=== PATIENT | female | born 1975 | race Caucasian/White ===

== ENCOUNTER 2017-07-19 06:57 | Inpatient (IN) | payer OTHER ==
--- NOTE | 2017-07-16 10:49 | HP ---
Admitting History and Physical - Primary Care Physician PCP: Alex Ceballos - Admission Chief Complaint: high risk for breast cancer History of Present Illness: 42 yo female presents as a high risk for breast cancer patient secondary to personal history of bilateral atypia, family h/o of breast and ovarian cancer as well as CHEK 2 positive status. Patient is now presenting for bilateral prophylactic mastectomy with CAMPOS reconstruction. History Source: Patient Limitations to Obtaining History: No Limitations - Past Surgical History Past Surgical History: Yes: ( and ) Additional Past Surgical History: right breast core bx (04/2016) fibroadenoma left arm exc of benign lesion (2002) left elbow surgery () Home Medications - Allergies Allergies/Adverse Reactions: Allergies Allergy/AdvReac Type Severity Reaction Status Date / Time No Known Allergies Allergy Verified 07/16/17 11:09 - Home Medications Home Medications: Ambulatory Orders NK [No Known Home Medication] 07/16/17 Family Disease History - Family Disease History Family Disease History: CA: Grandparent (mat GM (breast at 65)), Mother (breast cancer at 68 ;CHEK 2 positive) Other Family History: maternal great GM (ovarian at 42) Review of Systems - Review of Systems Constitutional: reports: No Symptoms Cardiovascular: reports: No Symptoms Gastrointestinal: reports: No Symptoms Breasts: reports: See HPI Physical Examination Constitutional: Yes: Well Nourished, Calm Breast(s): Yes: Other (D-cup breasts without skin changes or nipple discharge. No suspicious masses or adenopathy noted bilaterally.) Problem List - Problems (1) At high risk for breast cancer Code(s): Z91.89 - [facility] PERSONAL RISK FACTORS, NOT ELSEWHERE CLASSIFIED Assessment/Plan bilateral mastectomy with bilateral snbx, lymphoscintogram, possible axillary node dissection with reconstruction
[2017-07-17 16:20] VITALS: BMI 27.3
[2017-07-19] MEDS ORDERED: BUPIVACAINE HCL/PF 0.25% (2.5MG/ML) 10 ML VIAL ONE (07:00)
[2017-07-19] MEDS ORDERED: HEPARIN NA (PORCINE) 5,000 UNITS/ML 1ML VIAL ONE (07:00)
[2017-07-19] MEDS ORDERED: PAPAVERINE HCL 30 MG/1 ML 10 ML VIAL NR ONE (07:00)
[2017-07-19] MEDS ORDERED: MIDAZOLAM HCL 2 MG/2 ML SINGLE DOSE VIAL ONE (08:34)
[2017-07-19] MEDS ORDERED: fentaNYL CITRATE 250 MCG/5 ML VIAL ONE ×2 (08:34→10:33)
[2017-07-19] MEDS ORDERED: ROCURONIUM BROMIDE 50 MG/5 ML VIAL ONE ×6 (08:37→17:13)
[2017-07-19] MEDS ORDERED: PROPOFOL 20 ML ONE ×6 (08:37→17:53)
[2017-07-19] MEDS ORDERED: LIDOCAINE HCL/PF 2% SDV 5ML VIAL ONE (08:42)
[2017-07-19] MEDS ORDERED: ACETAMINOPHEN INJECTION 100 ML IVPB ONE (09:02)
[2017-07-19] MEDS ORDERED: ceFAZolin SODIUM 1 GM VIAL IVPB ONE ×3 (09:40→17:40)
[2017-07-19] MEDS ORDERED: DEXAMETHASONE SOD PHOSPHATE 4 MG/1 ML VIAL ONE ×2 (09:48→19:10)
[2017-07-19] MEDS ORDERED: ONDANSETRON 4 MG/2 ML VIAL ONE ×2 (09:48→17:30)
[2017-07-19] MEDS ORDERED: HEPARIN NA (PORCINE) 5,000 UNITS/ML 1ML VIAL SQ ONE (09:51)
[2017-07-19] MEDS ORDERED: HYDROmorphone HCL CARPU-JECT 2 MG/1 ML DISP.SYRIN ONE (10:46)
[2017-07-19] MEDS ORDERED: CALCIUM CHLORIDE 1 GM/10 ML *DISP.SYRIN ONE ×2 (13:29→17:08)
[2017-07-19] MEDS ORDERED: ePHEDrine SULFATE 50 MG/1 ML AMPULE ONE (13:35)
[2017-07-19] MEDS ORDERED: ceFAZolin SODIUM 1 GM VIAL ONE ×4 (13:44→17:15)
[2017-07-19] MEDS ORDERED: HYDROmorphone HCL CARPU-JECT 1 MG/1 ML DISP.SYRIN IVPUSH PRN (14:06)
[2017-07-19] MEDS ORDERED: PROMETHAZINE HCL 25 MG/1 ML VIAL IVPB PRN ×2 (14:06→14:09)
[2017-07-19] MEDS ORDERED: DEXAMETHASONE SOD PHOSPHATE 4 MG/1 ML VIAL IVPUSH PRN (14:09)
[2017-07-19] MEDS ORDERED: ONDANSETRON 4 MG/2 ML VIAL IVPUSH PRN (14:09)
[2017-07-19] MEDS ORDERED: HYDROmorphone *PCA* 10MG/50ML DISP.SYRIN PCA SCH (14:15)
[2017-07-19] MEDS ORDERED: LACTATED RINGERS SOLUTION 1,000 ML IV SCH (14:15)
[2017-07-19] MEDS ORDERED: NEOSTIGMINE METHYLSULFATE 0.5 MG/ML - 10 ML MDV ONE (16:58)
[2017-07-19] MEDS ORDERED: GLYCOPYRROLATE 0.2 MG/1 ML VIAL ONE (16:59)
[2017-07-19] MEDS ORDERED: FUROSEMIDE 40 MG/4 ML INJECTABLE VIAL ONE (17:32)
[2017-07-19] MEDS ORDERED: diazePAM 5 MG TABLET PO PRN (19:58)
[2017-07-19] MEDS ORDERED: oxyCODONE HCL 5 MG TABLET PO PRN (19:58)
[2017-07-19] MEDS ORDERED: ASPIRIN 81 MG CHEWABLE TABLETS PO ONE (20:15)
--- NOTE | 2017-07-19 22:13 | CONSULT ---
Consult Consult Specialty:: PULM/CCM Referred by:: Dr. Alex Ceballos Reason for Consultation:: POD#: ZERO s/p B/L mastectomy w/ CAMPOS flap reconstruction. - History of Present Illness Chief Complaint: POD#: ZERO s/p B/L mastectomy w/ CAMPOS flap reconstruction. History of Present Illness: [facility] ICU POST-OP CRITICAL CARE TEAM PT Seen & Examined in the ICU. Ms. Florian is a 42 y/o woman w/ Hx/o b/l atypia, CHEK2 +, w/ a FHx/o breast & Ovarian CA. The patient presents to Dr. Ceballos for prophylactic B/L mastectomy. Pt is now POD#: ZERO s/p B/L mastectomy w/ CAMPOS flap reconstruction. Admitted to the ICU O/N for close watch, frequent V/S, & Flap checks. Pt arrives from PACU, awake, extubated, conversant, friendly. Anesthesia report shows an easy intubation w/ smooth induction. There are no reported OR complications. - History Source History Provided By: Patient, Medical Record Limitations to Obtaining History: No Limitations - Past Medical History Cardio/Vascular: No: AFIB, CAD, HTN, MT Pulmonary: No: Asthma, COPD Gastrointestinal: No: GERD Hepatobiliary: No: Cirrhosis Renal/: No: Renal Inusuff ...LMP: 07/16/17 Psych: Yes: Anxiety. No: Addictions, Depression Endocrine: No: Diabetes Mellitus - Past Surgical History Past Surgical History: Yes: ( and 08) - Alcohol/Substance Use Hx Alcohol Use: Yes (OCCASIONAL) - Smoking History Smoking history: Never smoked Have you smoked in the past 12 months: No - Social History History of Recent Travel: No Home Medications - Allergies Allergies/Adverse Reactions: Allergies Allergy/AdvReac Type Severity Reaction Status Date / Time No Known Allergies Allergy Verified 07/19/17 07:40 - Home Medications Home Medications: Ambulatory Orders Multivitamin [Daily Multiple Vitamin] 1 each PO DAILY 07/17/17 Family Disease History - Family Disease History Family Disease History: CA: Grandparent (mat GM (breast at 65)), Mother (breast cancer at 68 ;CHEK 2 positive) Other Family History: maternal great GM (ovarian at 42) Review of Systems - Review of Systems Constitutional: reports: No Symptoms Eyes: reports: No Symptoms HENT: reports: No Symptoms Neck: reports: No Symptoms Cardiovascular: reports: No Symptoms Respiratory: reports: No Symptoms Gastrointestinal: reports: No Symptoms Genitourinary: reports: No Symptoms Breasts: reports: See HPI Musculoskeletal: reports: No Symptoms Integumentary: reports: No Symptoms Neurological: reports: No Symptoms Endocrine: reports: No Symptoms Hematology/Lymphatic: reports: No Symptoms Psychiatric: reports: No Symptoms Pain Intensity: 0 Physical Exam Vital Signs: Vital Signs Temperature 98.7 F 07/19/17 20:00 Pulse Rate 98 H 07/19/17 20:00 Respiratory Rate 16 07/19/17 20:00 Blood Pressure 102/53 07/19/17 20:00 O2 Sat by Pulse Oximetry (%) 100 07/19/17 20:00 Intake & Output 07/17/17 07/18/17 07/19/17 07/20/17 23:59 23:59 23:59 23:59 Intake Total 7000 100 Output Total 1795 100 Balance 5205 0 Weight 79.379 kg Constitutional: Yes: Well Nourished, No Distress, Calm Eyes: Yes: WNL, Conjunctiva Clear, EOM Intact HENT: Yes: WNL, Atraumatic, Normocephalic Neck: Yes: WNL, Supple, Trachea Midline Cardiovascular: Yes: WNL, Regular Rate and Rhythm Respiratory: Yes: WNL, Regular, CTA Bilaterally Gastrointestinal: Yes: WNL, Normal Bowel Sounds, Soft, Other ((surgical incision )) ...Rectal Exam: Yes: Deferred Renal/: Yes: WNL Breast(s): Yes: Other (s/p B/L mastectomy w/ CAMPOS flap reconstruction.) Musculoskeletal: Yes: WNL Extremities: Yes: WNL Edema: No Peripheral Pulses WNL: Yes Integumentary: Yes: WNL Wound/Incision: Yes: Clean/Dry, Well Approximated Neurological: Yes: WNL, Alert, Oriented ...Motor Strength: WNL Psychiatric: Yes: WNL, Alert, Oriented Assessment/Plan ASSESS: This is a 42 y/o woman POD ZERO s/p B/L mastectomy w/ CAMPOS flap reconstruction. PLAN: -NPO -Supp FiO2 for an SpO2 > 92% -Nebs prn -CPT -IS -Gentle IVFs -Post-Op Pain Control PLAN: -->5mg Oxy for 1-3 -->10mg Oxy for 4-6 -->1mg Dilaudid for 7-10 -Can have Valium for anxiety -Zofran/Phenergan for any N/V -Paul Dennisgger to flap -Maintain NIDHI Drains to Bulb suction -q1Hr Flap checks -Post-Op Ancef a/p -Strict I's & O's -Monitor UOP -Trend BUN/Cr -Check CBC -Check BMP -Replete e-lytes prn -Cont home dose ASA prn -BR -Advance Diet a/p surgery -SCDs -DVT ppx -PT/OT -Transfer to Med Surg for cont Post-Op management. DGL, ACNP-BC [facility], ICU PULM/CCM [id number]
[2017-07-19] MEDS: ASPIRIN 325 MG TABLET PO SCH (22:45)
--- NOTE | 2017-07-19 22:46 | OP ---
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 Status post bilateral mastectomy. PROCEDURE: Bilateral nipple-sparing mastectomy from inframammary approach with bilateral sentinel lymph node biopsies and bilateral deep flap reconstructions. PRIMARY SURGEON: Trav Connolly M.D. SENIOR CHEMICAL ENGINEER: Patrick Prater Primary surgeons for the bilateral deep reconstructions is Trav Reid M.D. and Eitan Norwood M.D., with their accounts receivable assistant Carlos Martinez COMPLICATIONS: There were no complications. Briefly, the patient is a 41-year-old G2, P2 premenopausal white female with [place], [place], and some Orthodox ancestry. She has a strong family history with her mother who had breast cancer at age 68 and tested CHEK2 positive. She has a maternal grandmother who had breast cancer, at 65 and a maternal great grandmother who had ovarian cancer at age 42. The patient ended up testing positive for the same CHEK2 mutation as her mother. She was getting close followup and had a screening MRI in November of 2016 showed some bilateral upper outer quadrant findings and underwent MRI biopsy showing nodular sclerosing adenosis. 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 The patient opted on prophylactic mastectomy and did not want to undergo excisional biopsies. She was seen in consultation regarding risks of prophylactic mastectomy and was seen by Dr. Reid regarding reconstruction options and chose to have a deep reconstruction and to go forward with a nipple-sparing procedure. She understood all risks of skin flap necrosis, nipple loss, hematoma, infection. She was brought in for the procedure on July 19, 2017, and underwent bilateral nipple scintigraphy in preparation for sentinel node biopsies. She was then brought to the holding area. In the holding area, site verification was made and informed consent was obtained. She was marked preoperatively by the plastic surgeons. The patient was then brought into the operating room and laid on the OR table in a supine position. She was given Ancef prior to incision. The plastic surgeons performed Doppler on the abdomen prior to prepping and draping the patient to zhou the perforators. She had Venodynes placed on the lower extremities prior to induction and underwent general endotracheal anesthesia. Both breasts as well as the abdomen was sterilely prepped and draped in the usual fashion with both arms prepped in the field. No blue dye was injected, since we were doing a nipple-sparing procedure. We performed bilateral sentinel nodes biopsies first and we did the right axillary sentinel nodes first. An incision was made just below the hair-bearing area of the right axilla and 3 sentinel lymph nodes were easily found in the level 1, level 2 regions of the right axilla which are all hot with the first sentinel lymph node having a 10-second gamma count of 2056, the second node was a 10-second gamma count of 2171, and the third sentinel node with a 10-second gamma count of 2956. Background after removing these 3 nodes was 186 and frozen section of all 3 nodes came back negative, no other nodes were removed. The axillary incision was then closed using interrupted 3-0 deep dermal Vicryl suture in a running 4-0 subcuticular Biosyn suture. At this point the nipple sparing the left axillary sentinel lymph node biopsy was performed. An incision was made just below the hair bearing area of the left axilla and dissection was undertaken, and again 3 hot nodes were found on the left side with 10-second gamma counts of 13,491, 2403, and 9371. Background counts after removing these 3 nodes was 628. They were all sent for frozen section, came back negative, so no further nodes were removed. There were 2 nonsentinel nodes removed as well which were sent for permanent section. Hemostasis was achieved and the axillary wound was closed using interrupted 3-0 deep dermal Vicryl suture and a running 4-0 subcuticular Biosyn suture. At this point, the mastectomies were performed through an inframammary approach starting from the left side. An approximate 12-cm incision was made in the inframammary fold of the left breast, and the skin edges were inverted, and the breast was retracted inferiorly using Damascus clamps. The skin flap was raised using electrocautery superiorly to the level of the clavicle, medially to the level of the sternum, laterally to the level of the latissimus, and inferiorly below the level of the inframammary fold. The breast was taken out up to pectoralis major muscle using electrocautery from inferior medial to superior lateral, completely removed intact. The breast was oriented with a long lateral, short superior suture, and weighed to allow for appropriate cosmetic result. Skin flaps were trimmed for good cosmetic result. A retroareolar biopsy was taken underneath the left nipple areolar complex, sent for frozen section, came back negative, so the left nipple was spared. Hemostasis was achieved, and the wound was copiously irrigated with warm sterile saline. At this point, the right breast was approached, again about a 12-cm incision was made in the inframammary fold of the right breast symmetrical to the left. Again, the skin edges were everted and the breast was retracted inferiorly using Damascus clamps. The skin flap was raised using electrocautery superiorly to the level of the clavicle, medially to the level of the sternum, laterally to the level of the latissimus, and inferiorly below the level of the inframammary fold. The breast was taken out off pectoralis major muscle from inferomedial to superolateral, completely removed intact. It was oriented with a long lateral, short superior suture, and weighed to allow for appropriate cosmetic result. Skin flaps were trimmed for good cosmetic result. A retroareolar biopsy was taken underneath the right nipple areolar complex, sent for frozen section, came back negative, so the right nipple was spared. Hemostasis was achieved, and the wound was copiously irrigated. The deep flap harvesting was being performed at the same time as the mastectomies, and the patient will undergo bilateral deep flap reconstructions by plastic surgery at this point. Estimated blood loss was about 150 mL, and she was at this point in the case. All wound closures as well as the flap reconstruction will be dictated separately by plastic surgery. The patient will be recovered and will be brought to the ICU postoperatively for wound management as well as flap monitoring. All sponge, needle counts are correct at this point in the case. The patient did have a Moreira placed at the beginning of the case as well which will remain postoperatively. This is the end of the mastectomy part of the procedure. We did use the SPY skin perfusion device during the case which showed adequate perfusion of both skin flaps prior to the reconstruction. TRAV CONNOLLY M.D. SELENE/[id number]
[2017-07-19] MEDS ORDERED: ASPIRIN 325 MG ENTERIC COATED TABLET (FP) ONE (22:59)
[2017-07-19] MEDS: LACTATED RINGERS SOLUTION 1,000 ML IV SCH (23:00)
[2017-07-19] MEDS: DOCUSATE SODIUM 100 MG CAPSULE (FP) PO SCH (23:40)
[2017-07-19] MEDS: CEFAZOLIN 1 GM PUSH 1 GM/10 ML DISP.SYRIN IVPUSH SCH (23:48)
[2017-07-20] MEDS: CEFAZOLIN 1 GM PUSH 1 GM/10 ML DISP.SYRIN IVPUSH SCH ×3 (06:06→20:51)
[2017-07-20] MEDS: HYDROmorphone HCL CARPU-JECT 2 MG/1 ML DISP.SYRIN IVPUSH PRN ×3 (07:46→18:06)
[2017-07-20] MEDS: LACTATED RINGERS SOLUTION 1,000 ML IV SCH ×2 (08:30→20:50)
--- NOTE | 2017-07-20 08:33 | PN ---
Progress Note (short form) - Note Progress Note: Anesthesia post op note, POD#1 S/P B/L mastectomy w/ CAMPOS flap reconstruction, under GETA. Pat seen and examined. VSS. Hoarse, dry throat no pain, no erythema or swelling on exam. Reassured. Tolerating po liquids. No apparent post anesthesia complications. Will follow up if hoarseness persists.
--- NOTE | 2017-07-20 08:52 | PN ---
Progress Note, Physician Chief Complaint: S/P bilateral mastectomy, snbx with lymphoscintogram and CAMPOS reconstruction POD #1 History of Present Illness: Patient seen at the bedside in the ICU and reports good pain control. She is tolerating liquids well but is hoarse. Otherwise without any other complaints. - Current Medication List Current Medications: Active Medications Aspirin (Asa -) 325 mg PO DAILY [facility] Last Admin: 07/19/17 22:45 Dose: 325 mg Dexamethasone Sodium Phosphate (Decadron Injection -) 4 mg IVPUSH ONCE PRN PRN Reason: NAUSEA AND/OR VOMITING Diazepam (Valium -) 5 mg PO Q8H PRN PRN Reason: ANXIETY Diphenhydramine HCl (Benadryl Injection -) 12.5 mg IVPUSH ONCE PRN PRN Reason: FOR ITCHING Last Admin: 07/19/17 20:30 Dose: 12.5 mg Diphenhydramine HCl (Benadryl Injection -) 25 mg IVPB Q4H PRN PRN Reason: FOR ITCHING Docusate Sodium (Colace -) 100 mg PO BID [facility] Last Admin: 07/19/17 23:40 Dose: Not Given Enoxaparin Sodium (Lovenox -) 40 mg SQ DAILY [facility] Hydromorphone HCl (Dilaudid Injection -) 1 mg IVPUSH Q4H PRN PRN Reason: PAIN LEVEL 7 - 10 Last Admin: 07/20/17 07:46 Dose: 1 mg Cefazolin Sodium (Ancef 1 Gm Premixed Ivpb -) 50 mls @ 100 mls/hr IVPB Q6H-IV NILDA Lactated Ringer's (Lactated Ringers Solution) 1,000 mls @ 100 mls/hr IV ASDIR [facility] Last Admin: 07/19/17 23:00 Dose: 100 mls/hr Multivitamins/Minerals/Vitamin C (Tab-A-Vit -) 1 tab PO DAILY [facility] Ondansetron HCl (Zofran Injection) 4 mg IVPUSH Q6H PRN PRN Reason: NAUSEA AND/OR VOMITING Ondansetron HCl (Zofran Injection) 4 mg IVPUSH Q4H PRN PRN Reason: NAUSEA AND/OR VOMITING Oxycodone HCl (Roxicodone -) 5 mg PO Q4H PRN PRN Reason: PAIN LEVEL 1-5 Oxycodone HCl (Roxicodone -) 10 mg PO Q4H PRN PRN Reason: PAIN LEVEL 6-10 Promethazine HCl (Phenergan Injection -) 12.5 mg IVPB Q6H PRN PRN Reason: NAUSEA-FOR RESCUE AFTER 15 MIN Promethazine HCl (Phenergan Injection -) 12.5 mg IVPB Q6H PRN PRN Reason: NAUSEA AND/OR VOMITING - Objective Vital Signs: Vital Signs Temperature 98.6 F 07/20/17 06:00 Pulse Rate 87 07/20/17 06:00 Respiratory Rate 18 07/20/17 06:00 Blood Pressure 107/57 07/20/17 06:00 O2 Sat by Pulse Oximetry (%) 98 07/19/17 23:00 Constitutional: Yes: Well Nourished, Calm Gastrointestinal: Yes: Other (Abdominal incisions are clean with clean dry dressing over the umbilicus. JPs with serosanginous discharge.) Breast(s): Yes: Other (Right sided superficial epidermolysis noted on the nipple. The flaps are warm with good color. Incisions are clean without discharge or erythema. No swelling noted. JPs with serosanginous discharge. Strong pulse noted.) Problem List - Problems (1) At high risk for breast cancer Code(s): Z91.89 - [facility] PERSONAL RISK FACTORS, NOT ELSEWHERE CLASSIFIED Assessment/Plan Assessment: S/P bilateral mastectomy, snbx with CAMPOS reconstruction POD #1 Plan: Continue current tx regime as per plastic surgery and ICU. F/U today's labs Gluten free diet to be started after patient is cleared by plastics.
[2017-07-20 08:53] LABS: HEMATOCRIT 23.8 % (32.4-45.2); HEMOGLOBIN 7.9 GM/dL (10.7-15.3); MCH 30.4 pg (25.7-33.7); MCHC 33.4 g/dl (32.0-36.0); MEAN CELL VOLUME 91.2 fl (80-96); MEAN PLT VOLUME 9.1 fl (7.5-11.1); PLATELET COUNT 213 K/MM3 (134-434); RBC 2.61 M/mm3 (3.60-5.2); WHITE BLOOD COUNT 11.8 K/mm3 (4.0-10.0)
--- NOTE | 2017-07-20 08:58 | PN ---
Physical Exam: SUBJECTIVE: Patient seen and examined The patient is a 42 year old with no PMH who is s/p a bilateral mastectomy with CAMPOS reconstruction admitted to the ICU for monitoring and flap checks. The patient reports that her pain is well controlled. Otherwise no acute events overnight. OBJECTIVE: Vital Signs Period Temp Pulse Resp BP Sys/Beltrán Pulse Ox Last 24 Hr 97.7 F-98.7 F 75-100 16-20 101-115/48-65 98-100 GENERAL: The patient is awake, alert, and fully oriented, in no acute distress. HEAD: Normal with no signs of trauma. EYES:sclera anicteric, conjunctiva clear. No ptosis. ENT: oropharynx clear without exudates, moist mucous membranes. NECK: Trachea midline, full range of motion, supple. LUNGS: Breath sounds equal, clear to auscultation bilaterally, no wheezes, no crackles, no accessory muscle use. HEART: Regular rate and rhythm, S1, S2 without murmur, rub or gallop. ABDOMEN: Soft, nontender, nondistended, normoactive bowel sounds, no guarding, no rebound, no hepatosplenomegaly, no masses. EXTREMITIES: 2+ pulses, warm, well-perfused, no edema. NEUROLOGICAL: Normal speech, gait not observed. PSYCH: Normal mood, normal affect. SKIN: Warm, dry, normal turgor, no rashes or lesions noted Well-healing surgical wounds with srikanth drains in place. Laboratory Results - last 24 hr 07/19/17 07/19/17 09:40 10:01 Blood Type A POSITIVE A POSITIVE Antibody Screen Negative Active Medications Generic Name Dose Route Start Last Admin Trade Name Betoq PRN Reason Stop Dose Admin Aspirin 325 mg 07/20/17 10:00 07/19/17 22:45 Asa - PO 325 mg DAILY NILDA Administration Dexamethasone Sodium Phosphate 4 mg 07/19/17 14:09 Decadron Injection - IVPUSH ONCE PRN NAUSEA AND/OR VOMITING Diazepam 5 mg 07/19/17 19:58 Valium - PO Q8H PRN ANXIETY Diphenhydramine HCl 12.5 mg 07/19/17 14:09 07/19/17 20:30 Benadryl Injection - IVPUSH 12.5 mg ONCE PRN Administration FOR ITCHING Diphenhydramine HCl 25 mg 07/19/17 20:00 Benadryl Injection - IVPB Q4H PRN FOR ITCHING Docusate Sodium 100 mg 07/19/17 22:00 07/19/17 23:40 Colace - PO Not Given BID [facility] Enoxaparin Sodium 40 mg 07/20/17 10:00 Lovenox - SQ DAILY [facility] Hydromorphone HCl 1 mg 07/20/17 05:35 07/20/17 07:46 Dilaudid Injection - IVPUSH 1 mg Q4H PRN Administration PAIN LEVEL 7 - 10 Cefazolin Sodium 50 mls @ 100 mls/hr 07/19/17 21:00 Ancef 1 Gm Premixed Ivpb - IVPB Q6H-IV NILDA Lactated Ringer's 1,000 mls @ 100 mls/hr 07/19/17 20:00 07/19/17 23:00 Lactated Ringers Solution IV 100 mls/hr ASDIR NILDA Administration Multivitamins/Minerals/Vitamin C 1 tab 07/19/17 10:00 Tab-A-Vit - PO DAILY [facility] Ondansetron HCl 4 mg 07/19/17 14:06 Zofran Injection IVPUSH Q6H PRN NAUSEA AND/OR VOMITING Ondansetron HCl 4 mg 07/19/17 14:09 Zofran Injection IVPUSH Q4H PRN NAUSEA AND/OR VOMITING Oxycodone HCl 5 mg 07/20/17 19:58 Roxicodone - PO Q4H PRN PAIN LEVEL 1-5 Oxycodone HCl 10 mg 07/19/17 19:58 Roxicodone - PO Q4H PRN PAIN LEVEL 6-10 Promethazine HCl 12.5 mg 07/19/17 14:06 Phenergan Injection - IVPB Q6H PRN NAUSEA-FOR RESCUE AFTER 15 MIN Promethazine HCl 12.5 mg 07/19/17 14:09 Phenergan Injection - IVPB Q6H PRN NAUSEA AND/OR VOMITING ASSESSMENT/PLAN: The patient is a 42 year old with no PMH who is s/p a bilateral mastectomy with CAMPOS reconstruction admitted to the ICU for monitoring and flap checks. S/P surgical reconstruction and CAMPOS flap revision Patient reports good pain management. -Post-op management as per surgical team -Monitor SRIKANTH output -Keep incisions clean dry and open to air -Pain management: Continue oxicodone, Fentanyl NEURO Alert and oriented x3 No issues currently. -Ishmael continue to monitor. -Valium ordered as needed for anxiety. CV No issues currently -Will continue to monitor. RESP No issues currently. -Will continue to monitor. -Insentive spirometrey GI No Issues currently. -Phenergan as needed for nausea. -Will continue to monitor. Heme No Issues currently. -Will continue to monitor H/H. Renal No Issues currently -Will continue to monitor bun/creatinine. MSK No issues currently FEN/GI -Replete electrolytes PRN, will monitor PPX -Lovenox DISPO: Stable for floors once cleared by surgery. Visit type - Emergency Visit Emergency Visit: No - New Patient This patient is new to me today: No - Critical Care Critical Care patient: No
[2017-07-20 09:12] LABS: ANION GAP 6 (8-16); BLOOD UREA NITROGEN 12 mg/dL (7-18); CALCIUM 7.7 mg/dL (8.5-10.1); CHLORIDE 105 mmol/L (98-107); CO2 27 mmol/L (21-32); CREATININE 0.5 mg/dL (0.55-1.02); GLUCOSE,RANDOM 109 mg/dL (74-106); MAGNESIUM 1.5 mg/dL (1.8-2.4); PHOSPHOROUS 4.2 mg/dL (2.5-4.9); POTASSIUM 3.9 mmol/L (3.5-5.1); SODIUM 138 mmol/L (136-145)
[2017-07-20] MEDS: ENOXAPARIN NA (PORCINE) 40 MG/0.4 ML DISP.SYRIN SQ SCH (10:01)
[2017-07-20] MEDS: ASPIRIN 325 MG TABLET PO SCH (10:01)
[2017-07-20] MEDS: DOCUSATE SODIUM 100 MG CAPSULE (FP) PO SCH ×2 (10:01→21:01)
[2017-07-20] MEDS: MULTIVITAMINS (DAILY MVI) TABLET (FP) PO SCH (10:03)
--- NOTE | 2017-07-20 11:24 | PN ---
Progress Note (short form) - Note Progress Note: Patient is POD #1 s/p bilateral breast reconstruction with CAMPOS flap. The CAMPOS flap reconstruction was immediately performed after bilateral mastectomy by Dr. Amanda Ceballos. Patient was seen by bedside this morning. Patient was seen by me . Patient has been doing well. She has been tolerating pain well. Denies headache , chills, nausea/vomiting/diarrhea, or any urinary sxs. Patient has been bedrest and has a piña. She has been having the stacy hugger on her breast. vitals stable. On PE, she is A&O x 3. Interactive and cooperative. Bilateral breast with appropriate swelling. Incision is covered by dermabond on the breast. The incision site is c/d/i with no surrounding erythema. Good cap refill on the mastectomy flap, CAMPOS flaps are burried. Flaps are warm to touch, and doppler has great sound, arterial and venous - has intrinsic doppler. NIDHI drains holding suction well. Abdomen with appropriate swelling. Incision is covered with perineo. no surrounding erythema. NIDHI drains on suction. A/P: POD #1 s/pbilatearl breast reconstruction with CAMPOS flap immediately after mastectomy. Diet: Advance diet. No caffeine, no chocolate. OOB to chair as toelrated this afternoon. D/c piña Pain: continue with regimen po. tolerating pain well. Doppler: q2hr checks Case management - possible VNS will be set up please. Will continue to monitor her closely Discussed hoping for d/c in 2 days.
[2017-07-20] MEDS ORDERED: MAGNESIUM SULF 50% (8.12 MEQ/2 ML-1 GM VIAL) IVPB ONE (11:53)
--- NOTE | 2017-07-20 12:25 | PN ---
Teaching Attending Note Name of Resident: Jefferson Lloyd ATTENDING PHYSICIAN STATEMENT I saw and evaluated the patient. I reviewed the resident's note and discussed the case with the resident. I agree with the resident's findings and plan as documented. SUBJECTIVE: Patient seen and examined in the ICU. Awake and alert. Voice is harsh but improving. Re[ports that her pain is adequately controlled. Good doppler pulses. Intake & Output 07/17/17 07/18/17 07/19/17 07/20/17 23:59 23:59 23:59 23:59 Intake Total 7000 1000 Output Total 1795 900 Balance 5205 100 Weight 175 lb Last Vital Signs Temp Pulse Resp BP Pulse Ox 99.6 F 86 20 115/56 99 07/20/17 10:00 07/20/17 10:00 07/20/17 10:00 07/20/17 10:00 07/20/17 09:00 Active Medications Aspirin (Asa -) 325 mg PO DAILY [facility] Last Admin: 07/20/17 10:01 Dose: 325 mg Dexamethasone Sodium Phosphate (Decadron Injection -) 4 mg IVPUSH ONCE PRN PRN Reason: NAUSEA AND/OR VOMITING Diazepam (Valium -) 5 mg PO Q8H PRN PRN Reason: ANXIETY Diphenhydramine HCl (Benadryl Injection -) 12.5 mg IVPUSH ONCE PRN PRN Reason: FOR ITCHING Last Admin: 07/19/17 20:30 Dose: 12.5 mg Diphenhydramine HCl (Benadryl Injection -) 25 mg IVPB Q4H PRN PRN Reason: FOR ITCHING Docusate Sodium (Colace -) 100 mg PO BID [facility] Last Admin: 07/20/17 10:01 Dose: 100 mg Enoxaparin Sodium (Lovenox -) 40 mg SQ DAILY [facility] Last Admin: 07/20/17 10:01 Dose: 40 mg Hydromorphone HCl (Dilaudid Injection -) 1 mg IVPUSH Q4H PRN PRN Reason: PAIN LEVEL 7 - 10 Last Admin: 07/20/17 07:46 Dose: 1 mg Cefazolin Sodium (Ancef -) 1 gm in 10 mls @ 120 mls/hr IVPUSH Q6H-IV [facility] Lactated Ringer's (Lactated Ringers Solution) 1,000 mls @ 100 mls/hr IV ASDIR NILDA Last Admin: 07/20/17 08:30 Dose: 100 mls/hr Magnesium Sulfate/Dextrose (Magnesium 1gm/D5w -) 1 gm in 100 mls @ 100 mls/hr IVPB ONCE ONE Stop: 07/20/17 13:44 Magnesium Oxide (Mag-Ox -) 800 mg PO ONCE ONE Stop: 07/20/17 12:31 Multivitamins/Minerals/Vitamin C (Tab-A-Vit -) 1 tab PO DAILY [facility] Last Admin: 07/20/17 10:03 Dose: 1 tab Ondansetron HCl (Zofran Injection) 4 mg IVPUSH Q6H PRN PRN Reason: NAUSEA AND/OR VOMITING Ondansetron HCl (Zofran Injection) 4 mg IVPUSH Q4H PRN PRN Reason: NAUSEA AND/OR VOMITING Oxycodone HCl (Roxicodone -) 5 mg PO Q4H PRN PRN Reason: PAIN LEVEL 1-5 Oxycodone HCl (Roxicodone -) 10 mg PO Q4H PRN PRN Reason: PAIN LEVEL 6-10 Promethazine HCl (Phenergan Injection -) 12.5 mg IVPB Q6H PRN PRN Reason: NAUSEA-FOR RESCUE AFTER 15 MIN Promethazine HCl (Phenergan Injection -) 12.5 mg IVPB Q6H PRN PRN Reason: NAUSEA AND/OR VOMITING Constitutional: Yes: Well Nourished, No Distress, Calm Eyes: Yes: WNL, Conjunctiva Clear, EOM Intact HENT: Yes: WNL, Atraumatic, Normocephalic Neck: Yes: WNL, Supple, Trachea Midline Cardiovascular: Yes: WNL, Regular Rate and Rhythm Respiratory: Yes: WNL, Regular, CTA Bilaterally Gastrointestinal: Yes: WNL, Normal Bowel Sounds, Soft, Other ((surgical incision )) ...Rectal Exam: Yes: Deferred Renal/: Yes: WNL Breast(s): Yes: Other (s/p B/L mastectomy w/ CAMPOS flap reconstruction.) Musculoskeletal: Yes: WNL Extremities: Yes: WNL Edema: No Peripheral Pulses WNL: Yes Integumentary: Yes: WNL Wound/Incision: Yes: Clean/Dry, Well Approximated Neurological: Yes: WNL, Alert, Oriented ...Motor Strength: WNL Psychiatric: Yes: WNL, Alert, Oriented Laboratory Results - last 24 hr 07/20/17 07/20/17 08:30 08:30 WBC 11.8 H RBC 2.61 L Hgb 7.9 L Hct 23.8 L MCV 91.2 MCH 30.4 MCHC 33.4 RDW 13.0 Plt Count 213 MPV 9.1 Sodium 138 Potassium 3.9 Chloride 105 Carbon Dioxide 27 Anion Gap 6 L BUN 12 Creatinine 0.5 L Random Glucose 109 H Calcium 7.7 L Phosphorus 4.2 Magnesium 1.5 L Assessment/Plan POD #1 B/L mastectomy w/ CAMPOS flap reconstruction. PLAN: -PO as tolerated -Supp FiO2 for an SpO2 > 92% -Nebs prn -CPT -IS -Post-Op Pain Control PLAN: -->5mg Oxy for 1-3 -->10mg Oxy for 4-6 -->1mg Dilaudid for 7-10 -Zofran/Phenergan for any N/V -Maintain NIDHI Drains to Bulb suction -q1Hr Flap checks -Post-Op Ancef -Strict I's & O's -Monitor UOP -Trend BUN/Cr -Advance Diet per surgery -SCDs -VTE prophylaxis -Floor when OK with surgery Dr Jameson
[2017-07-20] MEDS ORDERED: MAGNESIUM OXIDE 400 MG TABLET (FP) PO ONE (12:30)
[2017-07-20] MEDS ORDERED: MAGNESIUM 1GM/D5W - 1 GM/100 ML IVPB IVPB ONE (12:45)
[2017-07-20] MEDS: ONDANSETRON 4 MG/2 ML VIAL IVPUSH PRN (19:19)
[2017-07-20] MEDS ORDERED: oxyCODONE HCL 5 MG TABLET PO PRN (19:58)
[2017-07-20] MEDS ORDERED: ACETAMINOPHEN 1000 MG/100 ML VIAL (NON FORMULARY) IVPB PRN (22:39)
[2017-07-21] MEDS: HYDROmorphone HCL CARPU-JECT 2 MG/1 ML DISP.SYRIN IVPUSH PRN ×3 (00:12→08:06)
[2017-07-21] MEDS: CEFAZOLIN 1 GM PUSH 1 GM/10 ML DISP.SYRIN IVPUSH SCH ×4 (02:42→17:06)
[2017-07-21 06:29] LABS: HEMATOCRIT 20.9 % (32.4-45.2); HEMOGLOBIN 7.2 GM/dL (10.7-15.3); MCH 31.3 pg (25.7-33.7); MCHC 34.2 g/dl (32.0-36.0); MEAN CELL VOLUME 91.6 fl (80-96); MEAN PLT VOLUME 9.6 fl (7.5-11.1); PLATELET COUNT 186 K/MM3 (134-434); RBC 2.28 M/mm3 (3.60-5.2); RDW 13.2 % (11.6-15.6); WHITE BLOOD COUNT 9.5 K/mm3 (4.0-10.0)
[2017-07-21 06:56] LABS: CHLORIDE 104 mmol/L (98-107); POTASSIUM 3.9 mmol/L (3.5-5.1); SODIUM 139 mmol/L (136-145)
[2017-07-21 07:03] LABS: ALBUMIN 2.4 g/dl (3.4-5.0); ALK PHOS 38 U/L (45-117); ANION GAP 5 (8-16); BILIRUBIN,TOTAL 0.2 mg/dL (0.2-1.0); BLOOD UREA NITROGEN 12 mg/dL (7-18); CALCIUM 7.6 mg/dL (8.5-10.1); CO2 30 mmol/L (21-32); CREATININE 0.5 mg/dL (0.55-1.02); GLUCOSE,RANDOM 104 mg/dL (74-106); MAGNESIUM 1.7 mg/dL (1.8-2.4); PHOSPHOROUS 1.3 mg/dL (2.5-4.9); SGOT/AST 23 U/L (15-37); SGPT/ALT 15 U/L (12-78); TOT PROT 4.9 g/dl (6.4-8.2)
[2017-07-21] MEDS: ONDANSETRON 4 MG/2 ML VIAL IVPUSH PRN (08:41)
[2017-07-21] MEDS ORDERED: KETOROLAC TROMETHAMINE 30 MG/1 ML VIAL IVPUSH PRN ×2 (08:54→18:08)
[2017-07-21] MEDS ORDERED: HYDROmorphone HCL 2 MG TABLET PO PRN ×2 (09:03→18:08)
[2017-07-21] MEDS ORDERED: HYDROmorphone HCL CARPU-JECT 1 MG/1 ML DISP.SYRIN IVPUSH PRN ×2 (09:05→18:08)
--- NOTE | 2017-07-21 09:13 | PN ---
Progress Note (short form) - Note Progress Note: POD#2 s/p bilateral NSM and bilateral SLN Bx with immediate bilateral CAMPOS flap reconstruction. Overnight, the patient has required IV pain medication. She reports frequent trips to bathroom to urinate and change mentruation pads. AVSS I/O: 3520/1360 UO:450cc NIDHI drains: 75/60cc (Breasts), 40/50cc (abdomen) On exam, bilateral breasts soft, appropriate mastectomy flap bruising. Underlying CAMPOS flaps are soft, doppler signals biphasic bilaterally Abdomen soft, ND, appropriately TTP; incision C/D/I Hct 20.9<-23.8 Plan: 1) Patient is fluid overloaded (over 7L positive); no more IVF 2) No more blood draws unless clinically indicated 3) Transition to Q4 hour flap checks 4) Toradol, Motrin, and PO Dilaudid for pain (IV Dilaudid for breakthrough) 5) Physical therapy consult 6) OOB and ambulate with assistance 7) Transfer to regular room today 8) Daily ASA 9) Lovenox daily for DVT prophylaxis 10) Iron supplements 11) D/C Planning for tomorrow
[2017-07-21] MEDS ORDERED: IBUPROFEN 600 MG TABLET (FP) PO PRN (09:21)
[2017-07-21] MEDS: ENOXAPARIN NA (PORCINE) 40 MG/0.4 ML DISP.SYRIN SQ SCH (10:02)
[2017-07-21] MEDS: MULTIVITAMINS (DAILY MVI) TABLET (FP) PO SCH (10:02)
[2017-07-21] MEDS: ASPIRIN 325 MG TABLET PO SCH (10:02)
[2017-07-21] MEDS: FERROUS SO4 325 MG TABLET (FP) PO SCH ×2 (10:04→22:55)
--- NOTE | 2017-07-21 10:15 | PN ---
Progress Note (short form) - Note Progress Note: PULM/CCM POD#2 s/p bilateral NSM w/ CAMPOS flap reconstruction. Pt Seen & Examined in the ICU. CA+OX3. O/N Pain required IV Dilaudid, I > O but UOP adequate. Active Medications Acetaminophen (Ofirmev Injection -) 1,000 mg IVPB Q6H PRN PRN Reason: MODERATE PAIN Aspirin (Asa -) 325 mg PO DAILY [facility] Diazepam (Valium -) 5 mg PO Q8H PRN PRN Reason: ANXIETY Diphenhydramine HCl (Benadryl Injection -) 25 mg IVPB Q4H PRN PRN Reason: FOR ITCHING Docusate Sodium (Colace -) 100 mg PO TID [facility] Enoxaparin Sodium (Lovenox -) 40 mg SQ DAILY [facility] Ferrous Sulfate (Feosol -) 325 mg PO BID [facility] Last Admin: 07/21/17 10:04 Dose: 325 mg Hydromorphone HCl (Dilaudid -) 2 mg PO Q6H PRN PRN Reason: PAIN LEVEL 4 - 6 Hydromorphone HCl (Dilaudid -) 4 mg PO Q6H PRN PRN Reason: PAIN LEVEL 6-10 Hydromorphone HCl (Dilaudid Injection -) 0.5 mg IVPUSH Q4H PRN PRN Reason: PAIN LEVEL 7 - 10 Cefazolin Sodium (Ancef -) 1 gm in 10 mls @ 100 mls/hr IVPUSH Q8H-IV [facility] Ibuprofen (Motrin -) 600 mg PO Q6H PRN PRN Reason: HEADACHE Last Admin: 07/21/17 20:36 Dose: 600 mg Ketorolac Tromethamine (Toradol Injection -) 30 mg IVPUSH Q6H PRN PRN Reason: PAIN LEVEL 1 - 3 Stop: 07/26/17 08:53 Multivitamins/Minerals/Vitamin C (Tab-A-Vit -) 1 tab PO DAILY [facility] Ondansetron HCl (Zofran Injection) 4 mg IVPUSH Q4H PRN PRN Reason: NAUSEA AND/OR VOMITING Promethazine HCl (Phenergan Injection -) 12.5 mg IVPB Q6H PRN PRN Reason: NAUSEA AND/OR VOMITING V/S Period Temp Pulse Resp BP Sys/Beltrán Pulse Ox Last 24 Hr 98.6 F-100.5 F 89-108 18-20 103-125/52-73 96-99 Intake & Output 07/18/17 07/19/17 07/20/17 07/21/17 23:59 23:59 23:59 23:59 Intake Total 7000 3520 1170 Output Total 1795 1360 1425 Balance 5205 2160 -255 3520/1360 UO:450cc NIDHI drains: 75/60cc (Breasts), 40/50cc (abdomen) GEN: Middle Aged woman CA+OX3, in bed NAD, conversant HEENT: PERRL, an-icteric, MMM PULM: CTAB, bilateral breasts soft, appropriate mastectomy flap bruising. CV: nml S1 S2, RR, Underlying CAMPOS flaps are soft, doppler signals biphasic bilaterally ABD: S/S N/T appropriately TTP; incision C/D/I EXT: + Pulses, WWPX4, trace peripheral edema CBC, BMP 07/21/17 06:10 07/21/17 06:10 ASSESS: This is a 42 y/o woman POD#2 s/p bilateral NSM w/ CAMPOS flap reconstruction. PLAN: -IS -MOBILIZE PATIENT --> OOB and ambulate w/ assistance -Post-Op Pain Control PLAN: -Motrin [Low] -Toradol [Mod] -PO Dilaudid [Severe] -IV Dilaudid [breakthrough] -(Can have Valium for anxiety) -Zofran/Phenergan for any N/V -Maintain NIDHI Drains to Bulb suction -Transition q1Hr Flap checks --> q4Hrs -Strict I's & O's -Monitor UOP -Trend BUN/Cr -Cont home dose ASA regimen -BR -Clears -SCDs -DVT ppx -PT/OT -Transfer to Med Surg for cont Post-Op management. DGL, ACNP-BC [facility], ICU PULM/CCM 4403 Critical Care Total Critical Care Time (in minutes): 39 Critical Care Statement: The care of this patient involved high complexity decision making to prevent further life threatening deterioration of the patient 's condition and/or to evaluate & treat vital organ system(s) failure or risk of failure.
--- NOTE | 2017-07-21 10:55 | PN ---
Progress Note, Physician History of Present Illness: POD#2 s/p bilateral nipple sparing mastectomies, sentinel node biopsies with CAMPOS flap reconstruction - Current Medication List Current Medications: Active Medications Acetaminophen (Ofirmev Injection -) 1,000 mg IVPB Q6H PRN PRN Reason: MODERATE PAIN Last Admin: 07/20/17 22:55 Dose: 1,000 mg Aspirin (Asa -) 325 mg PO DAILY [facility] Last Admin: 07/21/17 10:02 Dose: 325 mg Diazepam (Valium -) 5 mg PO Q8H PRN PRN Reason: ANXIETY Diphenhydramine HCl (Benadryl Injection -) 25 mg IVPB Q4H PRN PRN Reason: FOR ITCHING Docusate Sodium (Colace -) 100 mg PO TID [facility] Enoxaparin Sodium (Lovenox -) 40 mg SQ DAILY [facility] Last Admin: 07/21/17 10:02 Dose: 40 mg Ferrous Sulfate (Feosol -) 325 mg PO BID [facility] Last Admin: 07/21/17 10:04 Dose: 325 mg Hydromorphone HCl (Dilaudid -) 2 mg PO Q6H PRN PRN Reason: PAIN LEVEL 4 - 6 Hydromorphone HCl (Dilaudid -) 4 mg PO Q6H PRN PRN Reason: PAIN LEVEL 6-10 Hydromorphone HCl (Dilaudid Injection -) 0.5 mg IVPUSH Q4H PRN PRN Reason: PAIN LEVEL 7 - 10 Cefazolin Sodium (Ancef -) 1 gm in 10 mls @ 120 mls/hr IVPUSH Q8H-IV [facility] Last Admin: 07/21/17 10:02 Dose: 120 mls/hr Ibuprofen (Motrin -) 600 mg PO Q6H PRN PRN Reason: HEADACHE Ketorolac Tromethamine (Toradol Injection -) 30 mg IVPUSH Q6H PRN PRN Reason: PAIN LEVEL 1 - 3 Stop: 07/26/17 08:53 Last Admin: 07/21/17 09:00 Dose: 30 mg Multivitamins/Minerals/Vitamin C (Tab-A-Vit -) 1 tab PO DAILY [facility] Last Admin: 07/21/17 10:02 Dose: 1 tab Ondansetron HCl (Zofran Injection) 4 mg IVPUSH Q4H PRN PRN Reason: NAUSEA AND/OR VOMITING Promethazine HCl (Phenergan Injection -) 12.5 mg IVPB Q6H PRN PRN Reason: NAUSEA AND/OR VOMITING - Objective Vital Signs: Vital Signs Temperature 100.5 F H 07/21/17 10:00 Pulse Rate 108 H 07/21/17 10:00 Respiratory Rate 18 07/21/17 10:00 Blood Pressure 125/70 07/21/17 10:00 O2 Sat by Pulse Oximetry (%) 99 07/21/17 09:00 Wound/Incision: Yes: Clean/Dry (Breast flaps warm and viable with mild ecchymosis Abdominal incision clean, dry, intact. NIDHI drains with serosanguineous effluent) Labs: CBC, BMP 07/21/17 06:10 07/21/17 06:10 Assessment/Plan Patient doing well after bilateral mastectomies and CAMPOS flap reconstructio, ordered ironn Plan transfer to floor today Encourage po intake Hct 20. Dr. Norwood aware. ordered iron supplements
[2017-07-21] MEDS ORDERED: DOCUSATE SODIUM 100 MG CAPSULE (FP) PO SCH (14:00)
[2017-07-21] MEDS ORDERED: ACETAMINOPHEN 1000 MG/100 ML VIAL (NON FORMULARY) IVPB PRN (18:08)
[2017-07-21] MEDS ORDERED: PROMETHAZINE HCL 25 MG/1 ML VIAL IVPB PRN (18:08)
[2017-07-21] MEDS ORDERED: diazePAM 5 MG TABLET PO PRN (18:08)
[2017-07-21] MEDS ORDERED: ONDANSETRON 4 MG/2 ML VIAL IVPUSH PRN (18:08)
[2017-07-21] MEDS: DOCUSATE SODIUM 100 MG CAPSULE (FP) PO SCH (22:55)
[2017-07-22] MEDS: CEFAZOLIN 1 GM PUSH 1 GM/10 ML DISP.SYRIN IVPUSH SCH ×3 (01:54→17:48)
[2017-07-22] MEDS: DOCUSATE SODIUM 100 MG CAPSULE (FP) PO SCH ×3 (07:00→23:12)
--- NOTE | 2017-07-22 08:52 | PN ---
Progress Note (short form) - Note Progress Note: Doing very well OOB walking Breasts great Small scab right NAXC but great doppler sounds. Needs another day until dc Social work in am for visiting nurse.
[2017-07-22] MEDS: ENOXAPARIN NA (PORCINE) 40 MG/0.4 ML DISP.SYRIN SQ SCH (09:41)
[2017-07-22] MEDS: FERROUS SO4 325 MG TABLET (FP) PO SCH ×2 (09:41→23:12)
[2017-07-22] MEDS: ASPIRIN 325 MG TABLET PO SCH (09:41)
[2017-07-22] MEDS: MULTIVITAMINS (DAILY MVI) TABLET (FP) PO SCH (09:42)
[2017-07-22] MEDS: KETOROLAC TROMETHAMINE 10 MG TABLET PO PRN ×3 (10:03→23:38)
--- NOTE | 2017-07-22 17:22 | OP ---
DATE OF OPERATION: 07/19/2017 PREOPERATIVE DIAGNOSES: 1. 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 2. Acquired absence of bilateral breasts. 3. Incisional hernia of abdomen, reducible. POSTOPERATIVE DIAGNOSES: 1. 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 2. Acquired absence of bilateral breasts. 3. Incisional hernia of abdomen, reducible. PROCEDURES: 1. Immediate right breast reconstruction with deep inferior epigastric salvage winder microvascular free flap. 2. Immediate left breast reconstruction with deep inferior epigastric salvage winder microvascular free flap. 3. Bilateral 3rd rib partial resection. 4. Exploration of bilateral internal mammary vessels with extensive adventitia excision. 5. Bilateral ultrasound-guided transverse abdominis plane nerve blocks. 6. Intraoperative angiography of bilateral mastectomy skin flaps using the [employer] system. 7. Processing and interpretation of bilateral intraoperative angiography images. 8. Reinforcement of abdominal wall closure with resorbable mesh. ATTENDING SURGEON: Darren Sims MD CO-SURGEON: Alex Reid MD NUMERICAL CONTROL OPERATOR: JUAN MIGUEL Martinez ANESTHESIA: General endotracheal. ESTIMATED BLOOD LOSS: 250 mL for plastic surgery portion. DRAINS: 1. Number 15 round Dameon drain x1 to right breast. 2. Number 15 round Dameon drain x1 to left breast. 3. Number 15 round Dameon drain x2 to abdomen. COMPLICATIONS: None. CONDITION: Stable to recovery room, extubated. 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 The patient is also noted to have dysplasia on bilateral breasts and therefore will undergo bilateral [id number] mastectomies as well as bilateral sentinel lymph node biopsies. This will be performed by Dr. Ceballos from surgical oncology. The patient was evaluated preoperatively for immediate reconstruction and she is most appropriately a candidate for autologous reconstruction using her lower abdominal tissue. The risks, benefits and alternatives of this were discussed with the patient in detail, and all questions were answered. The risks include but are not limited to bleeding, infection, pain, need for revision or further surgery, partial or complete flap loss, partial or complete nipple loss, damage to neighboring structures including nerves, arteries, veins, and tendons. The patient understands these risks and has elected to proceed with surgery. PROCEDURE: After proper identification and marking the patient in the preoperative holding area, the patient was transported to the operating room and placed supine on the table and noninvasive anesthesia monitors were applied. Intravenous access was established. General anesthesia was administered, and the patient was intubated without difficulty. SCD boots were applied to bilateral lower extremities. Intravenous antibiotics were then given. A Moreira catheter was then placed. The patient's bilateral breasts as well as abdomen and flanks were then prepped and draped in the usual sterile fashion. After a timeout was performed, Dr. Ceballos from surgical oncology proceeded to perform bilateral nipple-sparing mastectomies through inframammary fold approaches, as well as bilateral sentinel lymph node biopsies. These procedures will be dictated separately. Concurrently, Dr. Reid and myself began working independently as co-surgeons with separate instrument setups. Attention was first turned towards the umbilicus, where skin hooks were placed at the 12 and 6 o'clock position. The umbilicus was circumferentially incised. A periumbilical dissection was then performed with care taken to leave adequate periumbilical fat. At this point, the superior and inferior limbs of the lower abdominal skin flap were incised. The superior limb was dissected through the full thickness of the subcutaneous tissue with electrocautery, with care taken to bevel outwards in order to maximize volume. At the level of the anterior abdominal wall, the superior abdominal skin flap was raised up to the xiphoid process in the midline and the costal margin bilaterally. The inferior incision was then carried down through the subcutaneous tissue with electrocautery. On the right side, there was noted to be a good sized superficial inferior epigastric vein. Microvascular instruments and techniques were used to dissect proximally on this vessel until adequate length and caliber had been achieved. The vessel was then ligated and divided. On the left side, there was noted to be a large superficial inferior epigastric vein with an accompanying superficial inferior epigastric artery. This was noted to have a strong palpable pulse. More proximal dissection was performed on this artery and vein. The vein was noted to increase in caliber significantly; however, the artery was noted to maintain a small size. Therefore, the decision was made to not base the flap on this superficial pedicle. The artery and vein were ligated and divided once adequate length and caliber had been achieved. At this point, the lower abdominal flap was bisected in the midline with a number 10 blade, the full-thickness of the subcutaneous tissue, down to the linea alba, was then dissected with electrocautery. At this point, attention was turned towards the right abdominal flap, which was raised from a lateral to medial direction. It was just above the anterior rectus sheath along the midline. The flap was then raised from a medial to lateral direction. There were noted to be small medial rib perforators. The lateral rib perforators showed a dominant central salvage winder with 2 smaller perforators superior and inferiorly to this. The decision was made to base a right-sided abdominal flap off of these 3 lateral rib perforators. Therefore, bipolar was used to dissect around the perforators as they exited the fascia. The fascia was then opened superiorly and inferiorly as well as intervening the perforators. At this point, retrograde salvage winder dissections were performed through the full thickness of the rectus abdominis muscle fibers. Care was taken to individually identify, circumferentially dissect, ligate, and divide muscular side branches. The perforators were dissected back to their takeoff off the inferior epigastric pedicle. At this point, the superior continuation of the pedicle was ligated and divided. The more proximal pedicle dissection was performed until adequate length and caliber were achieved. At this point, the remainder of the flap was raised off of the anterior abdominal wall. The flap at this point was completely de-epithelialized and noted to be bleeding well. It was then temporarily stapled in place. At this point, attention was turned towards the left-sided abdominal flap, which was raised from a lateral to medial direction just above the level of the anterior rectus sheath. There was noted to be a large lateral rib salvage winder as well as a large medial rib salvage winder. The decision was made to base the flap off of these 2 perforators. Therefore, the lateral rib salvage winder was circumferentially dissected. The fascia was opened superior and inferiorly. A retrograde salvage winder dissection was performed through the full thickness of the rectus abdominis muscle fibers. Care was taken to individually identify, circumferentially dissect, ligate, and divide side branches. Once the takeoff from the inferior epigastric pedicle was encountered, the superior continuation was ligated and divided. The more proximal pedicle dissection was performed. The takeoff of the medial row was visualized. Dissection along the medial row pedicle was then performed until the takeoff of the medial row salvage winder to be included in the flap was identified. A small amount of intervening rectus abdominis muscle fiber required division in order to dissect its medial rib salvage winder. A retrograde salvage winder dissection was then performed, and care was again taken to individually identify, circumferentially dissect, ligate, and divide muscular side branches. At this point, a more proximal pedicle dissection was performed until adequate length and caliber were achieved. The flap at this point was completely raised off the anterior abdominal wall. The flap was completely de-epithelialized and noted to be bleeding well. The flap was then temporarily stapled in place. At this point, the SPY system was brought onto the field, and a 4 mL intravenous injection of indocyanine green was given. Bilateral mastectomy flap as well as lower abdominal flap angiographies were then performed. These images were processed, and interpretation of them showed adequate perfusion to bilateral mastectomy skin flaps as well as to all zones of the bilateral lower abdominal flaps. Therefore, at this point, attention was turned towards harvesting of recipient vessels. Attention was first turned towards the left chest, where self-retaining retractors were placed. The interspace between the 2nd and 3rd rib was identified. Electrocautery was used to longitudinally incise the pectoralis major muscle fibers just over the superior surface of the 3rd rib. A self-retaining retractor was then placed in order to spread the pectoralis muscle fibers. The periosteum and perichondrium on the superior surface of the 3rd rib was then incised. A circumferential subperiosteal dissection was performed around the 3rd rib at the costochondral junction. At this point, a rongeur was used to resect the 3rd rib at the costochondral junction. The periosteum on the deep surface was then incised, and the underlying internal mammary artery and accompanying vein were identified. At this point, microvascular instruments and techniques were used to explore the internal mammary vessels. Extensive adventitia excisions were performed on the artery as well as the accompanying vein in preparation for microvascular anastomoses. Once the vessels were adequately prepared, attention was turned towards the right side, where the exact same procedure was performed to partially resect the right 3rd rib and explore the internal mammary vessels and therefore only one side will be dictated. Once bilateral recipient vessels were prepared, the right-sided abdominal flap was ligated and divided at the most proximal extent of the pedicle dissection. The flap was weighed and noted to be 545 g (mastectomy specimen: 800 g). Attention was turned towards the microvascular anastomoses. A 2.5-mm Synovis lot worker was used to anastomose the larger of the 2 flap veins to the anterograde internal mammary vein. Release of all clamps revealed good flow across this anastomosis. Next, a primary handsewn anastomosis was performed between the internal mammary artery and inferior epigastric artery using 8-0 nylon in a simple interrupted fashion. Release of all clamps revealed a good flow across this anastomosis. Next, a 2nd venous anastomosis was performed between the remaining flap vein and the retrograde internal mammary vein. This was performed using a 2.0-mm Synovis lot worker, and release of all clamps revealed good flow across this anastomosis as well. At this point, attention was turned towards placement of an internal Doppler. The [employer] (T[employer]) implantable Doppler was brought onto the field and a window was created around the internal mammary artery distal to the anastomosis. The plastic cuff was placed around this and secured with a small hemoclip. It was hooked up to the implantable Doppler box and noted to have a strong biphasic signal. Therefore, attention was turned towards insetting of the flap. The flap was carefully positioned on the left chest wall and care was taken to ensure a good lie of the pedicle without twisting or kinking. The flap was inset medially, inferiorly, and superiorly to the pectoralis major muscle using a 2-0 Vicryl suture in a simple interrupted fashion. A number 15 round Dameon drain was then placed in the left breast pocket and brought out through a separate stab incision laterally and secured to the skin with 3-0 nylon suture. The left mastectomy skin flap was then re-draped. The leading edge of the mastectomy skin flap was trimmed back to healthy bleeding dermis. A layered closure of the inframammary fold incision was then performed using a 3-0 PDS in a buried deep dermal fashion, followed by a 4-0 Monocryl in a running subcuticular fashion. Once this was completed, attention was turned towards the microvascular anastomoses on the right side. The left abdominal flap was ligated and divided at the most proximal extent of the dissection. The flap was noted to weigh 547 g (mastectomy: 810 g). Attention was first turned towards the microvascular anastomosis between the inferior epigastric vein and the anterograde internal mammary vein. This was performed using a 2.5-mm Synovis lot worker. A release of all clamps revealed good backflow across this anastomosis. Next, a primary handsewn anastomosis was performed between the internal mammary artery and inferior epigastric artery using 8-0 nylon suture in a simple interrupted fashion, and release of all clamps revealed good flow across this anastomosis. Next, a 2nd venous anastomosis performed between the superficial inferior epigastric vein and the retrograde internal mammary vein using a 2.0-mm Synovis lot worker, and release of all clamps revealed good flow across this anastomosis as well. At this point, the implantable Doppler was placed around the internal mammary artery distal to the anastomosis in a similar fashion as to the other side. The flap was then inset and the right breast closure performed in the exact same fashion as the left side, and therefore only 1 side will be dictated. Concurrently, closure of the abdomen was performed. The fascial edges bilaterally were reapproximated primarily using a 0 V-Loc suture in simple running fashion. The fascial closure was noted to be tight, and therefore a decision was made to reinforce the abdominal wall using a resorbable mesh. The resorbable mesh was brought into the field. It was irrigated with normal saline and it was placed over the anterior abdominal wall and secured to the abdominal wall with a 0 PDS suture in a simple running fashion. Once this was in place, the ultrasound system was brought onto the field. Bilateral transverse abdominis plane blocks were performed using a local anesthetic solution consisting of 20 mL of Exparel mixed with 30 mL of 0.25% Marcaine and 80 mL of normal saline. A total of 30 mL were injected into each transverse abdominis plane. Once this was completed, the patient was placed into a flexed position. Two number 15 round Dameon drains were then placed in the abdominal pocket and brought through separate stab incisions laterally and secured to the skin with 3-0 nylon sutures. The abdominal skin flap was advanced and closed in layers using a 0 Vicryl in an interrupted buried fashion in Pierre's layer, followed by a 0 V-Loc suture in a simple running fashion in Pierre's layer. This was followed by a 3-0 PDS in an interrupted buried deep dermal fashion, and finally, a 3-0 Monocryl in a running subcuticular fashion. Once the closure was completed, the site of the umbilicus transposition was marked. The umbilicus location was incised and the umbilicus transposed and inset using a 3-0 Monocryl in a buried deep dermal fashion, followed by a 5-0 nylon in a simple running fashion. Xeroform followed by an eye patch and Hypafix tape was applied to the umbilicus. The lower abdominal incision was dressed with Prineo tape. All drains were dressed with BioPatches and Tegaderms. The bilateral breast incisions were dressed with Dermabond skin adhesive. At this point, bilateral implantable Doppler cords were hooked up to the Doppler box and there was noted to be strong biphasic signals bilaterally. The patient at this point was then placed into a soft surgical bra and was fully awakened and extubated without incident and then was transported to recovery room in stable condition. DARREN SIMS M.D. [id number]
[2017-07-22] MEDS ORDERED: PT OWN MED DRAWER 7, Y5N ONE ×2 (18:27→18:54)
[2017-07-23] MEDS: CEFAZOLIN 1 GM PUSH 1 GM/10 ML DISP.SYRIN IVPUSH SCH ×2 (02:23→09:18)
[2017-07-23] MEDS: KETOROLAC TROMETHAMINE 10 MG TABLET PO PRN (05:36)
[2017-07-23] MEDS: DOCUSATE SODIUM 100 MG CAPSULE (FP) PO SCH (05:37)
[2017-07-23 06:35] VITALS: TEMP 98.3
[2017-07-23] MEDS: FERROUS SO4 325 MG TABLET (FP) PO SCH (09:18)
[2017-07-23] MEDS: ASPIRIN 325 MG TABLET PO SCH (09:18)
[2017-07-23] MEDS: ENOXAPARIN NA (PORCINE) 40 MG/0.4 ML DISP.SYRIN SQ SCH (09:18)
[2017-07-23] MEDS: MULTIVITAMINS (DAILY MVI) TABLET (FP) PO SCH (09:18)
--- NOTE | 2017-07-23 10:16 | PN ---
Progress Note, Physician Chief Complaint: High risk breast cancer s/p bilateral total mastectomies and sentenel node biopsies CAMPOS reconstruction POD # 4 History of Present Illness: Patient is ready for discharge today, eating , OOb , no nausea or vomiting , pain managed by toradol prn which she will continue at home approved by plastics.She will follow up wed and wound checks for doppler removal - Current Medication List Current Medications: Active Medications Aspirin (Asa -) 325 mg PO DAILY [facility] Last Admin: 07/23/17 09:18 Dose: 325 mg Diazepam (Valium -) 5 mg PO Q8H PRN PRN Reason: ANXIETY Diphenhydramine HCl (Benadryl Injection -) 25 mg IVPB Q4H PRN PRN Reason: FOR ITCHING Docusate Sodium (Colace -) 100 mg PO TID [facility] Last Admin: 07/23/17 05:37 Dose: 100 mg Enoxaparin Sodium (Lovenox -) 40 mg SQ DAILY [facility] Last Admin: 07/23/17 09:18 Dose: 40 mg Ferrous Sulfate (Feosol -) 325 mg PO BID [facility] Last Admin: 07/23/17 09:18 Dose: 325 mg Hydromorphone HCl (Dilaudid -) 4 mg PO Q6H PRN PRN Reason: PAIN LEVEL 6-10 Hydromorphone HCl (Dilaudid Injection -) 0.5 mg IVPUSH Q4H PRN PRN Reason: PAIN LEVEL 7 - 10 Cefazolin Sodium (Ancef -) 1 gm in 10 mls @ 100 mls/hr IVPUSH Q8H-IV [facility] Last Admin: 07/23/17 09:18 Dose: 100 mls/hr Ibuprofen (Motrin -) 600 mg PO Q6H PRN PRN Reason: HEADACHE Last Admin: 07/21/17 20:36 Dose: 600 mg Ketorolac Tromethamine (Toradol) 10 mg PO Q6H PRN PRN Reason: PAIN SCALE 1-3 Stop: 07/27/17 11:59 Last Admin: 07/23/17 05:36 Dose: 10 mg Multivitamins/Minerals/Vitamin C (Tab-A-Vit -) 1 tab PO DAILY [facility] Last Admin: 07/23/17 09:18 Dose: 1 tab Ondansetron HCl (Zofran Injection) 4 mg IVPUSH Q4H PRN PRN Reason: NAUSEA AND/OR VOMITING Promethazine HCl (Phenergan Injection -) 12.5 mg IVPB Q6H PRN PRN Reason: NAUSEA AND/OR VOMITING - Objective Vital Signs: Vital Signs Temperature 98.3 F 07/23/17 06:34 Pulse Rate 93 H 07/23/17 06:34 Respiratory Rate 20 07/23/17 06:34 Blood Pressure 114/69 07/23/17 06:34 O2 Sat by Pulse Oximetry (%) 97 07/22/17 21:00 Constitutional: Yes: Well Nourished, No Distress Breast(s): Yes: Other (Bilateral viable warm flaps right nipple some scabbing , incision intact breast and abdomen abdomen is soft no signs of infection srikanth drains functiong well serosanguinous output) Labs: CBC, BMP 07/21/17 06:10 07/21/17 06:10 Problem List - Problems (1) At high risk for breast cancer Code(s): Z91.89 - OTH PERSONAL RISK FACTORS, NOT ELSEWHERE CLASSIFIED Assessment/Plan Discharge home today SRIKANTH empty bid -tid and record output follow up Weds with Dr Ceballos and Dr Reid Dopplers will be reomved on weds Sleep in V position walk in hunched position Cefadroxil, Valium prn ,toradol prn, zofran prn
--- NOTE | 2017-07-23 10:27 | DS ---
Physical Examination Vital Signs: Vital Signs Temperature 98.3 F 07/23/17 06:34 Pulse Rate 93 H 07/23/17 06:34 Respiratory Rate 20 07/23/17 06:34 Blood Pressure 114/69 07/23/17 06:34 O2 Sat by Pulse Oximetry (%) 97 07/22/17 21:00 Constitutional: Yes: Well Nourished Breast(s): Yes: Other (Flaps warm and viable incision intact no infection both breast and abdomen srikanth drains functiong well serosanguinous output) Labs: CBC, BMP 07/21/17 06:10 07/21/17 06:10 Discharge Summary Reason For Visit: BREAST CANCER Condition: Good - Instructions Diet, Activity, Other Instructions: Post Operative Instructions - [facility] We hope your recovery will be uneventful. For those of you who have been given general anesthesia, there is a possibility you might have some lightheadedness and possibly nausea. It is important that each patient, especially those who have had general anesthesia, follow these instructions, please: 1. Do NOT operate a motor vehicle for 24 hours. 2. Do NOT drink any alcoholic beverages for 24 hours. 3. Do NOT take any sedatives, narcotics, or tranquilizers for 24 hours unless specifically ordered by your surgeon. 4. Do NOT undertake any strenuous exercise or outside activity for 24 hours unless specifically permitted by your surgeon. 5. Eat light foods that are easy to digest. If you have any problems with nausea and vomiting, lie down and rest. If it continues, call your surgeon. 6. Call your surgeon AT ONCE if you have problems with: a. Bleeding b. Urinating c. Excessive pain or drainage d. Numbness If any problems occur, call your physician first. If you cannot reach him/her, call the Ambulatory Surgery Unit at [phone], or the Emergency Room at . Follow up with Drs. Ceballos / Aly in 7 days. Medication: Vicodin E-S OR Percocet 1-2 tablets every 4-6 hrs as needed for 5-7 days. Wound Care: Keep wound dry and clean for 48 hours. You may remove the dressing after 48 hours and may shower. Keep steri-strips in place until follow-up appointment No heavy lifting or strenuous activities. BREAST SURGERY INSTRUCTIONS Darian Ceballos M.D., FACS Alex Ceballos M.D., FACS Richie Lu M.D., FACS 1. Please call the office at to make a follow up appointment with your surgeon. This number can be also used for any urgent issues you may have. 2. Call us immediately if any of the following occur: *Bleeding from the incision or drain site (a small amount is normal) *Fever or chills *Redness and worsening tenderness around the surgical site *Drainage of pus or fluid from the incision or drain site 3. You may change the surgical dressing two (2) days after your surgery, and may shower then. If you have drains, you may shower after they have been removed, until then take a sponge bath. 4. It is normal for there to be some bruising and tenderness around the surgical site, and the breast may also be firm in this area. 5. Please wear a comfortable bra (sports or surgical bra) all day and all night until your first follow-up visit with your surgeon. 6. The pain medicine you have been prescribed may make you constipated; make sure you drink plenty of water. You may use an over the counter laxative if needed. 7. You may resume your normal diet after surgery, although you may want to avoid rich foods for the first twenty-four (24) hours after surgery. Alcoholic drinks should be avoided while taking the prescribed pain medicine. 8. You may resume normal activities as long as there is no discomfort, but do not do upper body exercises until after your follow-up appointment. Do not lift anything heavier than a large phone book. You may resume driving once you have stopped taking the prescribed pain medicine and feel comfortable doing arm movements. Empty and record SRIKANTH out put 2 to 3 X daily, no shower Follow up WEDs Dr Ceballos and Dr Reid for probe removal and wound check Cefadroxil BID x10 days, Vaium prn, toradol prn, zofran prn, tylenol prn TAKE ASA DAILY 325 mg WEAR BRA Referrals: Alex Ceballos MD [Staff Physician] - Didier Reid MD [Staff Physician] - Disposition: HOME - Home Medications Comprehensive Discharge Medication List: Ambulatory Orders Multivitamin [Daily Multiple Vitamin] 1 each PO DAILY 07/17/17 Cefadroxil 500 mg PO BID #20 capsule 07/23/17 Diazepam [Valium] 5 mg PO Q8H PRN #14 tablet MDD 3 07/23/17 Ketorolac Tromethamine [Toradol] 10 mg PO TID PRN 14 Days tablet 07/23/17 Ondansetron [Zofran *Odt*] 8 mg SL BID PRN #10 od.tablet 07/23/17
[2017-07-23 11:15] VITALS: BP 115/63; PULSE 96
--- NOTE | 2017-07-24 15:03 | PATH ---
Surgical Pathology Report Patient Name: MULUGETA VERA Med. Rec. #: [id number] /Age/Gender: 1975 (Age: 42) / F Account: [id number] Location: [facility] MED/SURG Taken: 07/19/2017 Received: 07/19/2017 Reported: 07/24/2017 Physicians: Alex Ceballos M.D. Specimen(s) Received A: SENTINEL LYMPH NODE #1 RIGHT BREAST B: SENTINEL LYMPH NODE #2 RIGHT AXILLA C: SENTINEL LYMPH NODE #3 RIGHT AXILLA D: FROZEN SECTION E: FROZEN SECTION F: FROZEN SECTION G: RIGHT RETROAREOLAR H: NON-SENTINEL LYMPH NODE LEFT BREAST I: LEFT RETROAREOLAR J: LEFT BREAST, MASTECTOMY K: RIGHT BREAST, MASTECTOMY Clinical History Breast cancer Intraoperative Consult Diagnosis A. [place] lymph node #1, right excision (frozen section): One benign lymph node (0/1). B. [place] lymph node #2, right excision (frozen section): One benign lymph node (0/1). C. [place] lymph node #3, right excision (frozen section): One benign lymph node (0/1). D. [place] lymph node #1, left excision (frozen section): One benign lymph node (0/1). E. [place] lymph node #2, left excision (frozen section): One benign lymph node (0/1). F. [place] lymph node #3, left excision (frozen section): One benign lymph node (0/1). G. Retroareolar, right, excision (frozen section): Negative for malignancy. Carmella Hussein M.D., 07/19/17 Final Diagnosis A. AXILLA, RIGHT, SENTINEL LYMPH NODE #1, EXCISION (FS): ONE BENIGN LYMPH NODE (0/1). B. AXILLA, RIGHT, SENTINEL LYMPH NODE #2, EXCISION (FS): ONE BENIGN LYMPH NODE (0/1). C. AXILLA, RIGHT, SENTINEL LYMPH NODE #3, EXCISION (FS): ONE BENIGN LYMPH NODE (0/1). D. AXILLA, LEFT, SENTINEL LYMPH NODE #1, EXCISION (FS): ONE BENIGN LYMPH NODE (0/1). E. AXILLA, LEFT, SENTINEL LYMPH NODE #2, EXCISION (FS): ONE BENIGN LYMPH NODE (0/1). F. AXILLA, LEFT, SENTINEL LYMPH NODE #3, EXCISION (FS): ONE BENIGN LYMPH NODE (0/1). G. BREAST, RIGHT, RETROAREOLAR, EXCISION (FS): BENIGN BREAST TISSUE. H. AXILLA, LEFT, NON-SENTINEL LYMPH NODE, EXCISION: TWO BENIGN LYMPH NODES (0/2). I. BREAST, LEFT, RETROAREOLAR, EXCISION: BENIGN BREAST TISSUE. J. BREAST, LEFT, MASTECTOMY: BREAST TISSUE WITH FOCAL ATYPICAL DUCTAL HYPERPLASIA IN A BACKGROUND OF FIBROADENOMA AND PROLIFERATIVE FIBROCYSTIC CHANGES INCLUDING STROMAL FIBROSIS, APOCRINE METAPLASIA, CYST FORMATION, COLUMNAR CELL CHANGES, AND USUAL DUCTAL HYPERPLASIA. ONE BENIGN LYMPH NODE (0/1). K. BREAST, RIGHT, MASTECTOMY: BENIGN BREAST TISSUE WITH FIBROADENOMAS AND PROLIFERATIVE FIBROCYSTIC CHANGES INCLUDING STROMAL FIBROSIS, APOCRINE METAPLASIA, CYST FORMATION, AND USUAL DUCTAL HYPERPLASIA. Electronically Signed Tasia Chan M.D. Gross Description A. Received fresh labeled "right breast sentinel lymph node #1," is a 1.2 x 0.9 x 0.6 cm emerson, irregular lymph node with attached fat. The specimen is bisected and entirely submitted for frozen section. The frozen section residue is entirely submitted in one cassette. B. Received fresh labeled "right axilla sentinel lymph node #2," is a 0.4 x 0.3 x 0.3 cm emerson, irregular lymph node with attached fat. The specimen is entirely submitted for frozen section. The frozen section residue is entirely submitted in one cassette. C. Received fresh labeled "right axilla sentinel lymph node #3," is a 0.9 x 0.8 x 0.3 cm emerson, irregular lymph node with attached fat. The specimen is entirely submitted for frozen section. The frozen section residue is entirely submitted in one cassette. D. Received fresh labeled "left breast sentinel lymph node #1," is a 1.2 x 0.7 x 0.3 cm emerson, irregular lymph node with attached fat. The specimen is entirely submitted for frozen section. The frozen section residue is entirely submitted in one cassette. E. Received fresh labeled "left breast sentinel lymph node #2," is a 1.2 x 0.8 x 0.3 cm emerson, irregular lymph node with attached fat. The specimen is entirely submitted for frozen section. The frozen section residue is entirely submitted in one cassette. F. Received fresh labeled "sentinel lymph node #3 left breast," is a 1.1 x 0.7 x 0.3 cm emerson, irregular lymph node with attached fat. The specimen is entirely submitted for frozen section. The frozen section residue is entirely submitted in one cassette. G. Received fresh labeled "right retroareolar for frozen," is a 1.7 x 1.2 x 0.3 cm red-yellow, irregular portion of fibrofatty tissue. The specimen is submitted in toto for frozen section. The frozen section residue is entirely submitted in one cassette. H. Received in formalin labeled "non-sentinel lymph node left breast," are 2 emerson, irregular lymph nodes measuring 0.8 x 0.7 x 0.3 cm and 1.0 x 0.8 x 0.3 cm. The specimens are submitted in toto in 2 cassettes. I. Received in formalin labeled "left retroareolar," is a 1.2 x 0.8 x 0.3 cm emerson, irregular portion of fibrofatty tissue. The specimen is submitted in toto in one cassette. J. Received in formalin, labeled "left breast mastectomy," is an 800 gram, 19.0 x 17.0 x 4.5 cm. left mastectomy specimen with a short suture marking the superior aspect and a long suture marking the lateral aspect of the specimen, per the surgeon. There is no skin or nipple present. The deep margin is inked black and the anterior soft tissue margin is inked blue. The specimen is serially sectioned from medial to lateral. Sectioning reveals a 0.7 x 0.6 x 0.4 cm emerson, rubbery nodule in the lower outer quadrant (LOQ). The remaining breast parenchyma displays abundant dense, white, focally firm fibrocystic tissue. There is a 0.5 cm greatest dimension lymph node identified. [facility] sections are submitted in 16 cassettes as follows: 1-3-upper outer quadrant; 4-LOQ nodule; 7-0-ffssvouphm LOQ tissue; 8-10-upper inner quadrant; 11-13-lower inner quadrant; 14-anterior soft tissue margin; 15-deep margin; 16-one whole bisected lymph node. K. Received in formalin, labeled "right breast mastectomy," is a 814 gram, 20.5 x 15.0 x 5.0 cm. right mastectomy specimen with a short suture marking the superior aspect and a long suture marking the lateral aspect of the specimen, per the surgeon. There is no skin or nipple present. The deep margin is inked black and the anterior soft tissue margin is inked blue. The specimen is serially sectioned from lateral to medial. Sectioning reveals abundant dense, white, focally firm fibrocystic tissue. No definitive masses are identified. [facility] sections are submitted in 16 cassettes as follows: 1-5-upper outer quadrant; 6-8-lower outer quadrant; 9-11-upper inner quadrant; 12-14-lower inner quadrant; 15-anterior soft tissue margin; 16-deep margin. Total formalin fixation time: Between 24-26 hours 07/19/201707/19/2017
== END 2017-07-23 10:59 | disposition home or self-care (01) | DRG 581 ==
LOC: JSAMEDAYSX 06:57 → EDSTATUS 08:30 → JICU 20:28 → J8W 07-21 17:39
PROVIDERS: ADMIT Surgery Surgical Oncology; ATTEND Surgery Surgical Oncology
PROC: 0WQF0ZZ Repair Abdominal Wall, Open Approach (ICD-10-PCS; 2017-07-19)
PROC: 3E0T3BZ Introduction of Anesthetic Agent into Peripheral Nerves and Plexi, Percutaneous Approach (ICD-10-PCS; 2017-07-19)
PROC: 4A1GXSH Monitoring of Skin and Breast Vascular Perfusion using Indocyanine Green Dye, External Approach (ICD-10-PCS; 2017-07-19)
PROC: 0HTV0ZZ Resection of Bilateral Breast, Open Approach (ICD-10-PCS; principal; 2017-07-19 09:00)
PROC: 07B60ZX Excision of Left Axillary Lymphatic, Open Approach, Diagnostic (ICD-10-PCS; 2017-07-19 09:00)
PROC: 07B50ZX Excision of Right Axillary Lymphatic, Open Approach, Diagnostic (ICD-10-PCS; 2017-07-19 09:00)
PROC: 0HR Skin and Breast, Replacement (ICD-10-PCS; 2017-07-19 09:00)
DX: Z40.01 Encounter for prophylactic removal of breast (principal); N62 Hypertrophy of breast
CPT/HCPCS: 36415; 80048; 80053; 83735; 84100; 84703; 85027; 86850; 86900; 86901; 94010; 94760; A9541; J1644